=== PATIENT | female | born 1990 | race Caucasian/White ===

== ENCOUNTER → 2016-09-22 | Outpatient (CLI) | payer OTHER ==
--- NOTE | 2016-09-22 15:42 | CR ---
EXAMINATION: Double contrast upper GI HISTORY: Epigastric pain COMPARISON: None TECHNIQUE: Standard double contrast upper GI was performed. FINDINGS: The patient swallowed barium without difficulty. The esophagus is normal in caliber withou t filling defect or stricture. No significant hiatal hernia is noted. Mild gastroesophageal reflux w as noted throughout the examination. The stomach is normally distensible without a filling defect or ulceration. Rugal fold pattern appeared normal to mildly atrophic. The duodenal bulb and sweep are normal. IMPRESSION: 1. Mild gastroesophageal reflux.
== END ==
LOC: MW.DI 08:53
PROVIDERS: ATTEND Family Medicine
DX: R10.13 Epigastric pain (principal); K21.9 Gastro-esophageal reflux disease without esophagitis
CPT/HCPCS: 74246; 74246-26

== ENCOUNTER 2017-09-19 17:34 | Emergency (ER) | payer OTHER ==
--- NOTE | 2017-09-19 17:51 | EDM.PDOC ---
ED HPI GENERAL MEDICAL PROBLEM - General Chief Complaint: ENT Problem Stated Complaint: PT HAS EAR PAIN Time Seen by Provider: 09/19/17 17:35 Source of Information: Reports: Patient History Limitations: Reports: No Limitations - History of Present Illness INITIAL COMMENTS - FREE TEXT/NARRATIVE: HISTORY AND PHYSICAL: History of present illness: [] Review of systems: As per history of present illness and below otherwise all systems reviewed and negative. Past medical history: As per history of present illness and as reviewed below otherwise noncontributory. Surgical history: As per history of present illness and as reviewed below otherwise noncontributory. Social history: No reported history of drug or alcohol abuse. Family history: As per history of present illness and as reviewed below otherwise noncontributory. Physical exam: General: HEENT: Atraumatic, normocephalic, pupils equal and reactive bilaterally, negative for conjunctival pallor or scleral icterus, mucous membranes moist, throat clear, neck supple, nontender, trachea midline. No drooling or trismus noted. No meningeal signs Lungs: Clear to auscultation, breath sounds equal bilaterally, chest nontender. Heart: S1S2, regular rate and rhythm without overt murmur Abdomen: Soft, nondistended, nontender. Negative for masses or hepatosplenomegaly. Negative for costovertebral tenderness. Pelvis: Stable nontender. Genitourinary: Deferred. Rectal: Deferred. Skin: Intact, warm, dry. No lesions or rashes noted. Extremities: Atraumatic, negative for cords or calf pain. Neurovascular unremarkable. Neuro: Awake, alert, oriented. Cranial nerves II through XII unremarkable. Cerebellum unremarkable. Motor and sensory unremarkable throughout. Exam nonfocal. Notes: Diagnostics: [] Therapeutics: [] Impression: Otitus media, bilateral Pharyngitis Plan: 1. Please take the antibiotic as prescribed. 2. Phenergan with codeine to help alleviate ear pain. This medication may cause drowsiness so do not take it will driving her needing to be functioning outside of the house. Continue to use Tylenol and ibuprofen during daytime hours. 3. Follow-up with your primary caregiver in the next 1-2 days. Return to the ED as needed and as discussed Definitive disposition and diagnosis as appropriate pending reevaluation and review of above. bilateral ear Pain Score (Numeric/FACES): 10 - Related Data Allergies Allergy/AdvReac Type Severity Reaction Status Date / Time Alexa's wort Allergy Nausea and Verified 09/19/17 17:50 Vomiting Home Meds: Home Meds ALPRAZolam [Xanax] 1 mg PO ASDIRECTED PRN 09/19/17 [History] Omeprazole 40 mg PO DAILY 09/19/17 [History] Ondansetron HCl [Zofran] 4 mg PO DAILY PRN 09/19/17 [History] buPROPion [Wellbutrin] 75 mg PO DAILY 09/19/17 [History] Past Medical History HEENT History: Reports: Impaired Vision Other HEENT History: wears glasses Cardiovascular History: Reports: None Respiratory History: Reports: None Gastrointestinal History: Reports: Cholelithiasis, Other (See Below) Other Gastrointestinal History: heartburn with this Genitourinary History: Reports: None BRIMMER BLOCKER History: Reports: Other OB/BYN History: 9 weeks / last menstrual cycle 11/13/2014 Musculoskeletal History: Reports: Back Pain, Chronic, Other (See Below) Other Musculoskeletal History: 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" Neurological History: Reports: None Psychiatric History: Reports: Anxiety, Depression Endocrine/Metabolic History: Reports: None Hematologic History: Reports: None Immunologic History: Reports: None Oncologic (Cancer) History: Reports: None Dermatologic History: Reports: Eczema - Infectious Disease History Infectious Disease History: Reports: Chicken Pox - Past Surgical History HEENT Surgical History: Reports: Oral Surgery Female Surgical History: Reports: Section Social & Family History - Family History HEENT: Reports: Otitis Media Cardiac: Reports: Other (See Below) Other Cardiac Family History: long QT syndrome GI: Reports: Other (See Below) Other GI Family History: chrohns Musculoskeletal: Reports: Arthritis, Other (See Below) Other Musculoskeletal Family History: ostepenia Neurological: Reports: Alzheimers Disease, Migraines Psychiatric: Reports: Abuse, Victim of, Anxiety, Bipolar, Depression, Eating Disorders Endocrine/Metabolic: Reports: Other (See Below) Other Endocrine/Metabolic Family History: mom had thyroid surgery Dermatologic: Reports: Eczema Oncologic: Reports: Breast - Tobacco Use Smoking Status *Q: Never Smoker - Recreational Drug Use Recreational Drug Use: No Drug Use in Last 12 Months: No ED ROS ENT - Review of Systems Review Of Systems: ROS reveals no pertinent complaints other than HPI. ED EXAM, ENT - Physical Exam Exam: See Below (See dictation) Course - Vital Signs Last Recorded V/S: Last Vital Signs Temp 97.2 F 09/19/17 17:52 Pulse 100 09/19/17 17:52 Resp 18 09/19/17 17:52 BP 171/89 H 09/19/17 17:52 Pulse Ox 100 09/19/17 17:52 Departure - Departure Time of Disposition: 18:03 Disposition: Home, Self-Care 01 Clinical Impression: Otitis media Qualifiers: Otitis media type: suppurative Chronicity: acute Laterality: bilateral Recurrence: not specified as recurrent Spontaneous tympanic membrane rupture: without spontaneous rupture Qualified Code(s): H66.003 - Acute suppurative otitis media without spontaneous rupture of ear drum, bilateral Pharyngitis Qualifiers: Pharyngitis/tonsillitis etiology: unspecified etiology Qualified Code(s): J02.9 - Acute pharyngitis, unspecified - Discharge Information Instructions: Otitis Media, Adult, [id number] Referrals: PCP,None [Primary Care Provider] - Forms: ED Department Discharge Additional Instructions: The following information is given to patients seen in the emergency department who are being discharged to home. This information is to outline your options for follow-up care. We provide all patients seen in our emergency department with a follow-up referral. The need for follow-up, as well as the timing and circumstances, are variable depending upon the specifics of your emergency department visit. If you don't have a primary care physician on staff, we will provide you with a referral. We always advise you to contact your personal physician following an emergency department visit to inform them of the circumstance of the visit and for follow-up with them and/or the need for any referrals to a consulting specialist. The emergency department will also refer you to a specialist when appropriate. This referral assures that you have the opportunity for follow-up care with a specialist. All of these measure are taken in an effort to provide you with optimal care, which includes your follow-up. Under all circumstances we always encourage you to contact your private physician who remains a resource for coordinating your care. When calling for follow-up care, please make the office aware that this follow-up is from your recent emergency room visit. If for any reason you are refused follow-up, please contact the [facility] Emergency Department at and asked to speak to the emergency department charge nurse. [facility] [place] [id number] 1. Please take the antibiotic as prescribed. 2. Phenergan with codeine to help alleviate ear pain. This medication may cause drowsiness so do not take it will driving her needing to be functioning outside of the house. Continue to use Tylenol and ibuprofen during daytime hours. 3. Follow-up with your primary caregiver in the next 1-2 days. Return to the ED as needed and as discussed
[2017-09-19 17:53] VITALS: BP 171/89
== END 2017-09-19 18:11 | disposition home or self-care (01) ==
LOC: MW.ED 17:34
DX: H66.003 Acute suppurative otitis media without spontaneous rupture of ear drum, bilateral (principal); J02.9 Acute pharyngitis, unspecified; Z79.899 Other long term (current) drug therapy; Z88.8 Allergy status to other drugs, medicaments and biological substances
CPT/HCPCS: 99282